=== PATIENT | female | born 1975 | race Two or more races ===

== ENCOUNTER 2019-09-12 18:00 | Emergency (ER) | payer OTHER, BC ==
[~2019-09-12] VITALS: Ht 167.6 cm; Wt 95.3 kg
[2019-09-12 18:42] VITALS: BP 149/101
[2019-09-12] MEDS ORDERED: HYDROcodone-ACET 5/325MG TAB PO ONE (20:15)
[2019-09-12] MEDS ORDERED: ONDANSETRON ODT 4 MG TAB PO ONE (20:15)
== END 2019-09-12 21:09 | disposition home or self-care (01) ==
LOC: ER 18:00
DX: S60.222A Contusion of left hand, initial encounter (principal); M54.2 Cervicalgia; V86.59XA Driver of other special all-terrain or other off-road motor vehicle injured in nontraffic accident, initial encounter; Y93.89 Activity, other specified; Y92.488 Other paved roadways as the place of occurrence of the external cause; Y99.8 Other external cause status
CPT/HCPCS: 70450; 71250; 72125; 73120; 74176; 99285; Q0162